=== PATIENT | female | born 1960 | race Caucasian/White ===

== ENCOUNTER 2016-12-20 21:19 | Observation (INO) | payer OTHER ==
[~2016-12-20] VITALS: Ht 165.1 cm; Wt 106.6 kg
[2016-12-20 22:37] LABS: HEMOGLOBIN 11.4 gm/dl (12.3-15.3); RED BLOOD COUNT 3.92 M/UL (4.00-5.10); WHITE BLOOD COUNT 6.3 K/UL (4.5-11.0)
[2016-12-21] MEDS ORDERED: KLONOPIN0.5 MG PO (09:39)
[2016-12-21] MEDS ORDERED: PAXIL40 MG PO (09:39)
[2016-12-21] MEDS ORDERED: SIMVASTATIN40 MG PO (09:39)
[2016-12-21] MEDS ORDERED: OXYCODONE HCL5 MG PO (09:43)
[2016-12-22] MEDS ORDERED: CEFUROXIME500 MG PO (11:28)
== END 2016-12-22 13:42 | disposition home or self-care (01) ==
LOC: ER1 21:19 → ZEROF 12-21 06:00 → M/S 12-21 08:34
PROVIDERS: Emergency Medicine; ADMIT Internal Medicine
DX: I95.1 Orthostatic hypotension (principal); R11.10 Vomiting, unspecified; T45.1X5A Adverse effect of antineoplastic and immunosuppressive drugs, initial encounter; J20.9 Acute bronchitis, unspecified; N39.0 Urinary tract infection, site not specified; I25.10 Atherosclerotic heart disease of native coronary artery without angina pectoris; E78.5 Hyperlipidemia, unspecified; C50.919 Malignant neoplasm of unspecified site of unspecified female breast; Z95.5 Presence of coronary angioplasty implant and graft; Z79.891 Long term (current) use of opiate analgesic; Z79.899 Other long term (current) drug therapy; Z90.11 Acquired absence of right breast and nipple; Z88.0 Allergy status to penicillin; Z91.041 Radiographic dye allergy status; Z87.891 Personal history of nicotine dependence
CPT/HCPCS: 36415; 71010; 80053; 81001; 83605; 83690; 83880; 84484; 85025; 85610; 85730; 87040; 87086; 93005; 94660; 96361; 96365; 99285; G0378; J0692; J2550; J7030; J7050